=== PATIENT | female | born 1955 | race Caucasian/White ===

== ENCOUNTER 2020-01-06 22:12 | Emergency (ER) | payer OTHER ==
[2020-01-06 22:34] VITALS: TEMP 97.9; BMI 20.9
[2020-01-06 23:29] LABS: BASO % 0.7 % (0-2.0); EOS % 1.4 % (0-4.5); HEMATOCRIT 37.1 % (32.4-45.2); HEMOGLOBIN 12.3 GM/dL (10.7-15.3); LYMPH % 36.8 % (8-40); MCH 31.8 pg (25.7-33.7); MCHC 33.2 g/dl (32.0-36.0); MEAN CELL VOLUME 95.6 fl (80-96); MEAN PLT VOLUME 8.5 fl (7.5-11.1); MONO % 10.2 % (3.8-10.2); NEUT % 50.9 % (42.8-82.8); PLATELET COUNT 188 K/MM3 (134-434); RBC 3.88 M/mm3 (3.60-5.2); RDW 14.7 % (11.6-15.6); WHITE BLOOD COUNT 7.1 K/mm3 (4.0-10.0)
[2020-01-06 23:37] LABS: INR 0.95 (0.83-1.09); PROTHROMBIN TIME (PATIENT) 11.7 SEC (9.7-13.0)
[2020-01-06 23:40] LABS: ACTIVATED PTT 31.3 SECONDS (25.2-36.5)
[2020-01-07 00:40] VITALS: BP 122/72; PULSE 86
== END 2020-01-07 00:40 | disposition home or self-care (01) ==
LOC: JER 22:12
DX: R04.0 Epistaxis (principal)
CPT/HCPCS: 36415; 85025; 85610; 85730; 99284-25

== ENCOUNTER 2020-08-17 17:11 | Emergency (ER) | payer OTHER ==
[2020-08-17 17:48] VITALS: BP 108/62; PULSE 77; TEMP 99; BMI 21.9
== END 2020-08-17 19:25 | disposition home or self-care (01) ==
LOC: JER 17:11
DX: L03.313 Cellulitis of chest wall (principal)
CPT/HCPCS: 99283-25

== ENCOUNTER 2020-08-19 09:47 | Inpatient (IN) | payer OTHER ==
[2020-08-19] MEDS ORDERED: FAMOTIDINE 20 MG/50 ML IVPB 20 MG/50 ML MG IVPB ONE ×2 (10:54→11:11)
[2020-08-19] MEDS ORDERED: MAG HYDROX/AL HYDROX/SIMETH 30 ML UNIT-DOSE CUP PO ONE (10:54)
[2020-08-19] MEDS ORDERED: ACETAMINOPHEN 500 MG TABLET (FP) PO ONE (10:54)
[2020-08-19] MEDS ORDERED: ACETAMINOPHEN 325 MG TABLET (FP) ONE (11:10)
[2020-08-19] MEDS ORDERED: MAG HYDROX/AL HYDROX/SIMETH 30 ML UNIT-DOSE CUP ONE (11:11)
[2020-08-19 12:02] LABS: BASO % 0.1 % (0-2.0); EOS % 0.2 % (0-4.5); HEMATOCRIT 37.3 % (32.4-45.2); LYMPH % 17.6 % (8-40); MCH 30.5 pg (25.7-33.7); MCHC 32.1 g/dl (32.0-36.0); MEAN PLT VOLUME 9.3 fl (7.5-11.1); NEUT % 74.1 % (42.8-82.8); PLATELET COUNT 144 10^3/uL (134-434); RBC 3.93 M/mm3 (3.60-5.2); RDW 13.1 % (11.6-15.6); WHITE BLOOD COUNT 8.1 K/mm3 (4.0-10.0)
[2020-08-19 12:48] LABS: CHLORIDE 99 mmol/L (98-107); SODIUM 137 mmol/L (136-145)
[2020-08-19 12:50] LABS: ALBUMIN 3.7 g/dl (3.4-5.0); ANION GAP 6 MMOL/L (8-16); CALCIUM 8.9 mg/dL (8.5-10.1); CO2 33 mmol/L (21-32); GLUCOSE,RANDOM 168 mg/dL (74-106)
[2020-08-19 12:54] LABS: SGOT/AST 19 U/L (15-37); SGPT/ALT 24 U/L (13-61)
[2020-08-19 12:55] LABS: BILIRUBIN,TOTAL 0.3 mg/dL (0.2-1); TOT PROT 7.9 g/dl (6.4-8.2)
[2020-08-19 12:56] LABS: ALK PHOS 94 U/L (45-117)
[2020-08-19] MEDS ORDERED: traMADol HCL 50 MG TABLET PO ONE (13:26)
[2020-08-19] MEDS ORDERED: ASPIRIN 81 MG CHEWABLE TABLETS PO ONE (13:36)
[2020-08-19] MEDS ORDERED: ASPIRIN 81 MG CHEWABLE TABLETS ONE (13:41)
[2020-08-19] MEDS ORDERED: traMADol HCL 50 MG TABLET ONE (13:41)
[2020-08-19] MEDS ORDERED: LORazepam 2 MG TABLET PO ONE (14:29)
[2020-08-19] MEDS ORDERED: LORazepam 1 MG TABLET ONE (14:39)
[2020-08-19] MEDS ORDERED: ACETAMINOPHEN 1000 MG/100 ML VIAL (NON FORMULARY) IVPB PRN (14:56)
[2020-08-19] MEDS ORDERED: AMPICILLIN NA/SULBACTAM NA 1.5 GM VIAL ONE (16:32)
[2020-08-19] MEDS: AMPICILLIN NA/SULBACTAM NA 3 GM in SODIUM CHLORIDE 100 ML IVPB SCH ×2 (16:39→22:19)
[2020-08-19] MEDS: INSULIN SLIDING SCALE (NOVOLOG) 1 VIAL SQ SCH ×2 (17:46→22:23)
[2020-08-19] MEDS ORDERED: traZODone HCL 50 MG TABLET (FP) PO ONE (22:00)
[2020-08-19] MEDS: risperiDONE 1 MG TABLET PO SCH (22:16)
[2020-08-19] MEDS: MELATONIN 5 MG TABLETS PO SCH (22:17)
[2020-08-19] MEDS: ATENOLOL 50 MG TABLET (FP) PO SCH (22:17)
[2020-08-19] MEDS: ATORVASTATIN CA 20 MG TABLET (FP) PO SCH (22:17)
[2020-08-19] MEDS: traMADol HCL 50 MG TABLET PO PRN (22:26)
[2020-08-20 01:29] LABS: URINE BARBITURATES NEGATIVE (NEGATIVE); URINE BENZODIAZEPINES NEGATIVE (NEGATIVE)
[2020-08-20 01:30] LABS: COCAINE, UR NEGATIVE (NEGATIVE); OPIATES, URI NEGATIVE (NEGATIVE); PHENCYCLIDINE,URINE NEGATIVE (NEGATIVE)
[2020-08-20 01:45] LABS: METHADONE, UR POSITIVE (NEGATIVE); URINE AMPHETAMINES NEGATIVE (NEGATIVE)
[2020-08-20] MEDS: AMPICILLIN NA/SULBACTAM NA 3 GM in SODIUM CHLORIDE 100 ML IVPB SCH ×4 (04:24→21:10)
[2020-08-20] MEDS ORDERED: methaDONE HCL 10 MG TABLET ONE (05:04)
[2020-08-20] MEDS ORDERED: methaDONE HCL 40 MG DISPERSABLE TABLET ONE (05:04)
[2020-08-20] MEDS: traMADol HCL 50 MG TABLET PO PRN ×3 (05:11→21:06)
[2020-08-20] MEDS ORDERED: methaDONE HCL 10 MG TABLET (FOR DETOX USE ONLY) PO ONE (06:00)
[2020-08-20] MEDS: INSULIN SLIDING SCALE (NOVOLOG) 1 VIAL SQ SCH ×4 (06:07→21:08)
[2020-08-20 07:23] LABS: HEMATOCRIT 33.2 % (32.4-45.2); HEMOGLOBIN 10.9 GM/dL (10.7-15.3); MCHC 32.8 g/dl (32.0-36.0); MEAN CELL VOLUME 94.4 fl (80-96); MEAN PLT VOLUME 8.7 fl (7.5-11.1); PLATELET COUNT 117 10^3/uL (134-434); RBC 3.52 M/mm3 (3.60-5.2); RDW 13.3 % (11.6-15.6); WHITE BLOOD COUNT 4.1 K/mm3 (4.0-10.0)
[2020-08-20 07:46] LABS: BLOOD UREA NITROGEN 18.7 mg/dL (7-18); CALCIUM 8.5 mg/dL (8.5-10.1)
[2020-08-20 07:49] LABS: CREATININE 0.7 mg/dL (0.55-1.3)
[2020-08-20 07:50] LABS: BILIRUBIN,TOTAL 0.3 mg/dL (0.2-1)
[2020-08-20 07:51] LABS: TOT PROT 6.6 g/dl (6.4-8.2)
[2020-08-20 07:53] LABS: CHOLESTEROL 125 mg/dL (50-200)
[2020-08-20 07:54] LABS: TRIGLYCERIDES 138 mg/dL (0-150)
[2020-08-20 07:55] LABS: LDL CHOLESTEROL (ONLY SJRH) 63 mg/dL (5-100)
[2020-08-20 07:57] LABS: HDL CHOLESTEROL 32 mg/dL (40-60)
[2020-08-20] MEDS: amLODIPine BESYLATE 10 MG TABLET (FP) PO SCH (08:12)
[2020-08-20] MEDS ORDERED: LORazepam 1 MG TABLET PO ONE (08:15)
[2020-08-20] MEDS ORDERED: PT OWN MED DRAWER 7, Y5N ONE ×3 (09:49→21:01)
[2020-08-20] MEDS ORDERED: REGADENOSON 0.4 MG/5 ML PRE-FILLED SYRINGE IVPUSH ONE ×2 (10:00→10:06)
[2020-08-20] MEDS ORDERED: amLODIPine BESYLATE 10 MG TABLET (FP) PO SCH (10:00)
[2020-08-20] MEDS ORDERED: DULoxetine HCL 30 MG CAPSULE.DR PO ONE (12:53)
[2020-08-20] MEDS: ENOXAPARIN NA (PORCINE) 40 MG/0.4 ML DISP.SYRIN SQ SCH (13:06)
[2020-08-20] MEDS: ATENOLOL 50 MG TABLET (FP) PO SCH ×2 (13:06→21:07)
[2020-08-20] MEDS: LEVOTHYROXINE NA 112 MCG TABLET (FP) PO SCH (13:07)
[2020-08-20] MEDS: DULoxetine HCL 60 MG CAPSULE.DR PO SCH (13:11)
[2020-08-20] MEDS: RITONAVIR 100 MG TABLET PO SCH (14:07)
[2020-08-20] MEDS: EMTRICITABINE/TENOFOV ALAFENAM (DESCOVY) TABLET PO SCH (14:07)
[2020-08-20] MEDS: DARUNAVIR ETHANOLATE 800 MG TAB PO SCH (14:07)
[2020-08-20 14:29] VITALS: BMI 22.4
[2020-08-20] MEDS: MELATONIN 5 MG TABLETS PO SCH (21:07)
[2020-08-20] MEDS: ATORVASTATIN CA 20 MG TABLET (FP) PO SCH (21:07)
[2020-08-20] MEDS: risperiDONE 1 MG TABLET PO SCH (21:08)
[2020-08-21] MEDS ORDERED: PT OWN MED DRAWER 7, Y5N ONE ×5 (03:07→22:33)
[2020-08-21] MEDS: AMPICILLIN NA/SULBACTAM NA 3 GM in SODIUM CHLORIDE 100 ML IVPB SCH ×4 (03:08→20:38)
[2020-08-21] MEDS ORDERED: methaDONE HCL 10 MG TABLET ONE (05:03)
[2020-08-21] MEDS ORDERED: methaDONE HCL 40 MG DISPERSABLE TABLET ONE (05:03)
[2020-08-21] MEDS: traMADol HCL 50 MG TABLET PO PRN ×3 (05:09→17:27)
[2020-08-21] MEDS: INSULIN SLIDING SCALE (NOVOLOG) 1 VIAL SQ SCH ×4 (06:34→22:11)
[2020-08-21] MEDS: LORazepam 1 MG TABLET PO PRN ×2 (08:27→16:39)
[2020-08-21] MEDS ORDERED: DULoxetine HCL 30 MG CAPSULE.DR PO ONE (08:54)
[2020-08-21] MEDS: LEVOTHYROXINE NA 112 MCG TABLET (FP) PO SCH (09:13)
[2020-08-21] MEDS: ATENOLOL 50 MG TABLET (FP) PO SCH ×2 (09:13→22:10)
[2020-08-21] MEDS: DULoxetine HCL 60 MG CAPSULE.DR PO SCH (09:14)
[2020-08-21] MEDS: ENOXAPARIN NA (PORCINE) 40 MG/0.4 ML DISP.SYRIN SQ SCH (09:14)
[2020-08-21] MEDS: amLODIPine BESYLATE 10 MG TABLET (FP) PO SCH (09:14)
[2020-08-21] MEDS: EMTRICITABINE/TENOFOV ALAFENAM (DESCOVY) TABLET PO SCH (09:15)
[2020-08-21] MEDS: DARUNAVIR ETHANOLATE 800 MG TAB PO SCH (09:16)
[2020-08-21] MEDS: RITONAVIR 100 MG TABLET PO SCH (10:22)
[2020-08-21 12:14] LABS: BASO % 0.4 % (0-2.0); EOS % 3.5 % (0-4.5); HEMOGLOBIN 12.1 GM/dL (10.7-15.3); LYMPH % 26.6 % (8-40); MCH 30.5 pg (25.7-33.7); MCHC 31.9 g/dl (32.0-36.0); MEAN CELL VOLUME 95.5 fl (80-96); MONO % 8.4 % (3.8-10.2); NEUT % 61.1 % (42.8-82.8); PLATELET COUNT 148 10^3/uL (134-434); RBC 3.98 M/mm3 (3.60-5.2); RDW 12.9 % (11.6-15.6); WHITE BLOOD COUNT 3.9 K/mm3 (4.0-10.0)
[2020-08-21 12:45] LABS: ALBUMIN 3.2 g/dl (3.4-5.0); BLOOD UREA NITROGEN 16.1 mg/dL (7-18); CALCIUM 8.9 mg/dL (8.5-10.1); MAGNESIUM 2.2 mg/dL (1.8-2.4)
[2020-08-21 12:49] LABS: CREATININE 0.8 mg/dL (0.55-1.3)
[2020-08-21 12:50] LABS: BILIRUBIN,TOTAL 0.3 mg/dL (0.2-1); TOT PROT 7.1 g/dl (6.4-8.2)
[2020-08-21] MEDS ORDERED: SODIUM CHLORIDE NASAL SPRAY 44 ML BOTTLE NS PRN (15:17)
[2020-08-21] MEDS ORDERED: ACETAMINOPHEN 500 MG TABLET (FP) PO PRN (16:46)
[2020-08-21] MEDS: LYTES/YERBA SANTA 240 ML BOTTLE MM SCH (17:25)
[2020-08-21] MEDS: MELATONIN 5 MG TABLETS PO SCH (22:10)
[2020-08-21] MEDS: risperiDONE 1 MG TABLET PO SCH (22:11)
[2020-08-21] MEDS: ATORVASTATIN CA 20 MG TABLET (FP) PO SCH (22:11)
[2020-08-22] MEDS: traMADol HCL 50 MG TABLET PO PRN (01:27)
[2020-08-22] MEDS ORDERED: PT OWN MED DRAWER 7, Y5N ONE ×3 (02:39→14:14)
[2020-08-22] MEDS: AMPICILLIN NA/SULBACTAM NA 3 GM in SODIUM CHLORIDE 100 ML IVPB SCH ×3 (02:45→14:17)
[2020-08-22] MEDS ORDERED: methaDONE HCL 40 MG DISPERSABLE TABLET ONE (05:39)
[2020-08-22] MEDS ORDERED: methaDONE HCL 10 MG TABLET ONE (05:39)
[2020-08-22] MEDS: LORazepam 1 MG TABLET PO PRN ×2 (06:03→14:18)
[2020-08-22] MEDS: INSULIN SLIDING SCALE (NOVOLOG) 1 VIAL SQ SCH ×2 (06:34→11:29)
[2020-08-22] MEDS ORDERED: LEVOTHYROXINE NA 112 MCG TABLET (FP) PO SCH (07:00)
[2020-08-22 07:02] LABS: BASO % 0.4 % (0-2.0); EOS % 3.8 % (0-4.5); HEMATOCRIT 36.3 % (32.4-45.2); HEMOGLOBIN 11.7 GM/dL (10.7-15.3); MCH 30.5 pg (25.7-33.7); MCHC 32.3 g/dl (32.0-36.0); MEAN CELL VOLUME 94.6 fl (80-96); MEAN PLT VOLUME 9.2 fl (7.5-11.1); NEUT % 50.8 % (42.8-82.8); PLATELET COUNT 165 10^3/uL (134-434); RBC 3.84 M/mm3 (3.60-5.2); RDW 13.3 % (11.6-15.6); WHITE BLOOD COUNT 4.3 K/mm3 (4.0-10.0)
[2020-08-22 07:43] LABS: CALCIUM 8.9 mg/dL (8.5-10.1)
[2020-08-22 07:44] LABS: ALBUMIN 3.2 g/dl (3.4-5.0); BLOOD UREA NITROGEN 18.1 mg/dL (7-18); MAGNESIUM 2.3 mg/dL (1.8-2.4)
[2020-08-22 07:47] LABS: CREATININE 0.9 mg/dL (0.55-1.3)
[2020-08-22 07:48] LABS: BILIRUBIN,TOTAL 0.3 mg/dL (0.2-1); TOT PROT 6.9 g/dl (6.4-8.2)
[2020-08-22] MEDS ORDERED: traMADol HCL 50 MG TABLET PO ONE (08:00)
[2020-08-22] MEDS ORDERED: DULoxetine HCL 30 MG CAPSULE.DR PO ONE (09:55)
[2020-08-22] MEDS: amLODIPine BESYLATE 10 MG TABLET (FP) PO SCH (09:58)
[2020-08-22] MEDS: ATENOLOL 50 MG TABLET (FP) PO SCH (09:58)
[2020-08-22] MEDS: DULoxetine HCL 60 MG CAPSULE.DR PO SCH (09:59)
[2020-08-22] MEDS: ENOXAPARIN NA (PORCINE) 40 MG/0.4 ML DISP.SYRIN SQ SCH (09:59)
[2020-08-22] MEDS: RITONAVIR 100 MG TABLET PO SCH (10:00)
[2020-08-22] MEDS: LYTES/YERBA SANTA 240 ML BOTTLE MM SCH (10:00)
[2020-08-22] MEDS: EMTRICITABINE/TENOFOV ALAFENAM (DESCOVY) TABLET PO SCH (10:00)
[2020-08-22] MEDS: DARUNAVIR ETHANOLATE 800 MG TAB PO SCH (10:01)
[2020-08-22] MEDS ORDERED: SODIUM CHLORIDE FOR INHALATION 3 ML VIAL.NEB IH PRN (11:36)
[2020-08-22 15:01] VITALS: BP 120/79; PULSE 65; TEMP 97.9
[2020-08-22] MEDS ORDERED: traZODone HCL 100 MG TABLET (FP) PO SCH (22:00)
== END 2020-08-22 16:08 | disposition short-term general hospital (02) | DRG 603 ==
LOC: JER 09:47 → INTOOBSV 13:39 → JERBED 13:39 → OBSVTOIN 14:49 → J4S 20:48
PROVIDERS: ATTEND Nurse Practitioner Acute Care
DX: L03.313 Cellulitis of chest wall (principal); I24.9 Acute ischemic heart disease, unspecified; F11.20 Opioid dependence, uncomplicated; J96.12 Chronic respiratory failure with hypercapnia; I11.9 Hypertensive heart disease without heart failure; R07.89 Other chest pain; Z21 Asymptomatic human immunodeficiency virus [HIV] infection status; C14.0 Malignant neoplasm of pharynx, unspecified; E03.9 Hypothyroidism, unspecified; E78.5 Hyperlipidemia, unspecified
CPT/HCPCS: 36415; 71046-TC-FY; 78452-TC; 80053; 80061; 80307; 82550; 82962; 83036; 83615; 83721; 83735; 84484; 85025; 85027; 86359; 86360; 93005; 93010; 93017; 93306-TC; 99285-25; A9502; C9803; G0378; J2785; J2794; U0003; U0005

== ENCOUNTER 2020-11-06 12:00 | Emergency (ER) | payer OTHER ==
[2020-11-06 12:30] VITALS: BP 113/66; PULSE 67; TEMP 97.9; BMI 21.9
[2020-11-06] MEDS ORDERED: ALPRAZolam 0.25 MG TABLET PO ONE (14:26)
[2020-11-06] MEDS ORDERED: ACETAMINOPHEN 1000 MG/100 ML VIAL (NON FORMULARY) IVPB ONE (14:26)
[2020-11-06] MEDS ORDERED: ACETAMINOPHEN INJECTION 100 ML IVPB ONE (14:51)
[2020-11-06] MEDS ORDERED: ALPRAZolam 0.25 MG TABLET ONE (15:28)
[2020-11-06 16:19] LABS: BASO % 0.5 % (0-2.0); EOS % 1.5 % (0-4.5); HEMATOCRIT 35.3 % (32.4-45.2); HEMOGLOBIN 11.7 GM/dL (10.7-15.3); LYMPH % 43.2 % (8-40); MCH 30.9 pg (25.7-33.7); MCHC 33.2 g/dl (32.0-36.0); MEAN CELL VOLUME 92.8 fl (80-96); MEAN PLT VOLUME 8.4 fl (7.5-11.1); MONO % 11.6 % (3.8-10.2); NEUT % 43.2 % (42.8-82.8); PLATELET COUNT 166 10^3/uL (134-434); RDW 15.3 % (11.6-15.6); WHITE BLOOD COUNT 5.8 K/mm3 (4.0-10.0)
[2020-11-06 16:27] LABS: VENOUS BASE EXCESS 4.5 mmol/L (-2-2); VENOUS O2 SATURATION 84.1 % (70-80); VENOUS PCO2 58.6 mmHg (38-52); VENOUS PH 7.349 (7.310-7.410)
[2020-11-06 18:03] LABS: ALBUMIN 3.7 g/dl (3.4-5.0); BILIRUBIN,TOTAL 0.4 mg/dL (0.2-1); CHLORIDE 101 mmol/L (98-107); CO2 34 mmol/L (21-32); CREATININE 1.1 mg/dL (0.55-1.3); GLUCOSE,RANDOM 115 mg/dL (74-106); SGOT/AST 23 U/L (15-37); SODIUM 139 mmol/L (136-145)
[2020-11-06 18:04] LABS: ALK PHOS 117 U/L (45-117); SGPT/ALT 19 U/L (13-61)
[2020-11-06 18:05] LABS: ANION GAP 4 MMOL/L (8-16); N-TERMINAL BNP 714.09 pg/ml (5-125)
== END 2020-11-06 19:30 | disposition home or self-care (01) ==
LOC: JER 12:00
PROC: 3E0333Z Introduction of Anti-inflammatory into Peripheral Vein, Percutaneous Approach (ICD-10-PCS; principal; 2020-11-06)
DX: R06.02 Shortness of breath (principal)
CPT/HCPCS: 36415; 71046-TC-FY; 80053; 82550; 82803; 83880; 84484; 85025; 93005; 93010; 93971-TC; 96374; 99285-25; J0131

== ENCOUNTER 2020-11-15 11:03 | Observation (INO) | payer OTHER ==
[2020-11-15] MEDS ORDERED: ACETAMINOPHEN 1000 MG/100 ML VIAL (NON FORMULARY) IVPB ONE (11:24)
[2020-11-15] MEDS ORDERED: ACETAMINOPHEN INJECTION 100 ML IVPB ONE (11:41)
[2020-11-15 12:15] LABS: BASO % 0.5 % (0-2.0); EOS % 0.8 % (0-4.5); HEMATOCRIT 36.6 % (32.4-45.2); HEMOGLOBIN 12.2 GM/dL (10.7-15.3); LYMPH % 27.9 % (8-40); MCH 31.3 pg (25.7-33.7); MCHC 33.2 g/dl (32.0-36.0); MEAN CELL VOLUME 94.1 fl (80-96); MEAN PLT VOLUME 8.9 fl (7.5-11.1); MONO % 7.6 % (3.8-10.2); NEUT % 63.2 % (42.8-82.8); PLATELET COUNT 164 10^3/uL (134-434); RBC 3.89 M/mm3 (3.60-5.2); RDW 15.4 % (11.6-15.6); WHITE BLOOD COUNT 5.6 K/mm3 (4.0-10.0)
[2020-11-15] MEDS ORDERED: LORazepam 1 MG TABLET PO ONE (12:16)
[2020-11-15] MEDS ORDERED: LORazepam 1 MG TABLET ONE (12:18)
[2020-11-15 12:23] LABS: INR 0.95 (0.83-1.09); PROTHROMBIN TIME (PATIENT) 11.7 SEC (9.7-13.0)
[2020-11-15 12:25] LABS: ACTIVATED PTT 28.7 SECONDS (25.2-36.5)
[2020-11-15 12:37] LABS: CHLORIDE 101 mmol/L (98-107); SODIUM 139 mmol/L (136-145)
[2020-11-15 12:39] LABS: ANION GAP 6 MMOL/L (8-16); CALCIUM 9.2 mg/dL (8.5-10.1); CO2 32 mmol/L (21-32)
[2020-11-15 12:40] LABS: ALBUMIN 3.7 g/dl (3.4-5.0); BLOOD UREA NITROGEN 19.6 mg/dL (7-18); MAGNESIUM 1.9 mg/dL (1.8-2.4)
[2020-11-15 12:41] LABS: GLUCOSE,RANDOM 102 mg/dL (74-106)
[2020-11-15 12:42] LABS: SGPT/ALT 20 U/L (13-61)
[2020-11-15 12:43] LABS: CREATININE 0.9 mg/dL (0.55-1.3); SGOT/AST 25 U/L (15-37)
[2020-11-15 12:44] LABS: BILIRUBIN,TOTAL 0.4 mg/dL (0.2-1); TOT PROT 8.5 g/dl (6.4-8.2)
[2020-11-15 12:45] LABS: ALK PHOS 126 U/L (45-117)
[2020-11-15] MEDS ORDERED: traZODone HCL 150 MG TABLET PO ONE (20:20)
[2020-11-15] MEDS ORDERED: traZODone HCL 50 MG TABLET (FP) PO ONE (20:45)
[2020-11-15] MEDS: risperiDONE 1 MG TABLET PO SCH (21:20)
[2020-11-15] MEDS: ATENOLOL 50 MG TABLET (FP) PO SCH (21:21)
[2020-11-15] MEDS: ATORVASTATIN CA 20 MG TABLET (FP) PO SCH (21:21)
[2020-11-15] MEDS: INSULIN (LEVEMIR) 100 UNITS/ML UNITS SQ SCH (21:21)
[2020-11-15] MEDS: traMADol HCL 50 MG TABLET PO PRN (21:22)
[2020-11-16 00:31] VITALS: BMI 22.2
[2020-11-16] MEDS ORDERED: ACETAMINOPHEN 1000 MG/100 ML VIAL (NON FORMULARY) IVPB ONE (02:25)
[2020-11-16] MEDS ORDERED: methaDONE HCL 40 MG DISPERSABLE TABLET PO ONE (05:00)
[2020-11-16] MEDS: traMADol HCL 50 MG TABLET PO PRN (05:26)
[2020-11-16] MEDS: ACETAMINOPHEN 325 MG TABLET (FP) PO PRN ×3 (05:28→21:05)
[2020-11-16] MEDS: LEVOTHYROXINE NA 112 MCG TABLET (FP) PO SCH (06:59)
[2020-11-16] MEDS: DULoxetine HCL 30 MG CAPSULE.DR PO SCH (09:59)
[2020-11-16] MEDS: amLODIPine BESYLATE 5 MG TABLET (FP) PO SCH (09:59)
[2020-11-16] MEDS: ATENOLOL 50 MG TABLET (FP) PO SCH ×2 (09:59→21:02)
[2020-11-16] MEDS ORDERED: RITONAVIR 100 MG TABLET PO SCH (10:00)
[2020-11-16] MEDS ORDERED: DARUNAVIR ETHANOLATE 800 MG TAB PO SCH (10:00)
[2020-11-16] MEDS ORDERED: traZODone HCL 150 MG TABLET PO SCH (10:00)
[2020-11-16] MEDS: ENOXAPARIN NA (PORCINE) 40 MG/0.4 ML DISP.SYRIN SQ SCH (10:04)
[2020-11-16] MEDS: DARUNAVIR/COB/EMTRI/TENOF (SYMTUZA) TABLET (NF) PO SCH ×2 (12:34→14:07)
[2020-11-16 12:50] LABS: BASO % 0.6 % (0-2.0); EOS % 2.1 % (0-4.5); HEMATOCRIT 36.9 % (32.4-45.2); HEMOGLOBIN 12.1 GM/dL (10.7-15.3); LYMPH % 30.9 % (8-40); MCH 31.2 pg (25.7-33.7); MCHC 32.7 g/dl (32.0-36.0); MEAN CELL VOLUME 95.3 fl (80-96); MEAN PLT VOLUME 9.5 fl (7.5-11.1); MONO % 8.1 % (3.8-10.2); NEUT % 58.3 % (42.8-82.8); PLATELET COUNT 156 10^3/uL (134-434); RBC 3.87 M/mm3 (3.60-5.2); RDW 15.5 % (11.6-15.6); WHITE BLOOD COUNT 5.2 K/mm3 (4.0-10.0)
[2020-11-16 13:20] LABS: ALBUMIN 3.6 g/dl (3.4-5.0); BILIRUBIN,TOTAL 0.4 mg/dL (0.2-1); BLOOD UREA NITROGEN 13.6 mg/dL (7-18); CALCIUM 9.3 mg/dL (8.5-10.1); CREATININE 0.8 mg/dL (0.55-1.3); MAGNESIUM 1.9 mg/dL (1.8-2.4); PHOSPHOROUS 3.7 mg/dL (2.5-4.9); TOT PROT 8.4 g/dl (6.4-8.2)
[2020-11-16] MEDS ORDERED: ACETAMINOPHEN 500 MG TABLET (FP) PO PRN (13:39)
[2020-11-16] MEDS: oxyCODONE HCL 5 MG TABLET PO PRN ×2 (13:54→21:03)
[2020-11-16] MEDS ORDERED: PT OWN MED DRAWER 7, Y5N ONE (20:56)
[2020-11-16] MEDS: ATORVASTATIN CA 20 MG TABLET (FP) PO SCH (21:02)
[2020-11-16] MEDS: risperiDONE 1 MG TABLET PO SCH (21:03)
[2020-11-16] MEDS: INSULIN (LEVEMIR) 100 UNITS/ML UNITS SQ SCH (21:12)
[2020-11-17 05:21] VITALS: BP 124/79; PULSE 72; TEMP 98.4
[2020-11-17] MEDS: ACETAMINOPHEN 325 MG TABLET (FP) PO PRN ×2 (05:51→10:48)
[2020-11-17] MEDS: oxyCODONE HCL 5 MG TABLET PO PRN (05:51)
[2020-11-17] MEDS ORDERED: methaDONE HCL 40 MG DISPERSABLE TABLET PO SCH (06:00)
[2020-11-17] MEDS: LEVOTHYROXINE NA 112 MCG TABLET (FP) PO SCH (06:01)
[2020-11-17 08:59] LABS: HEMATOCRIT 36.1 % (32.4-45.2); HEMOGLOBIN 11.9 GM/dL (10.7-15.3); PLATELET COUNT 152 10^3/uL (134-434); RBC 3.83 M/mm3 (3.60-5.2); RDW 15.8 % (11.6-15.6)
[2020-11-17 09:30] LABS: BLOOD UREA NITROGEN 19.2 mg/dL (7-18); MAGNESIUM 2.1 mg/dL (1.8-2.4)
[2020-11-17 09:33] LABS: CREATININE 0.8 mg/dL (0.55-1.3)
[2020-11-17] MEDS ORDERED: POLYETHYLENE GLYCOL (HEALTHYLAX) 3350 17 GM PACKET PO SCH (10:00)
[2020-11-17] MEDS: DULoxetine HCL 30 MG CAPSULE.DR PO SCH (10:47)
[2020-11-17] MEDS: ENOXAPARIN NA (PORCINE) 40 MG/0.4 ML DISP.SYRIN SQ SCH (10:47)
[2020-11-17] MEDS: ATENOLOL 50 MG TABLET (FP) PO SCH (10:47)
[2020-11-17] MEDS: amLODIPine BESYLATE 5 MG TABLET (FP) PO SCH (10:48)
== END 2020-11-17 16:17 | disposition home or self-care (01) ==
LOC: JER 11:03 → INTOOBSV 14:19 → JERBED 14:19 → J7W 19:06
PROC: 3E033NZ Introduction of Analgesics, Hypnotics, Sedatives into Peripheral Vein, Percutaneous Approach (ICD-10-PCS; principal; 2020-11-15)
PROC: 3E023GC Introduction of Other Therapeutic Substance into Muscle, Percutaneous Approach (ICD-10-PCS; 2020-11-15)
DX: I27.20 Pulmonary hypertension, unspecified (principal); I25.10 Atherosclerotic heart disease of native coronary artery without angina pectoris; I11.9 Hypertensive heart disease without heart failure; R07.89 Other chest pain; Z85.3 Personal history of malignant neoplasm of breast; Z85.22 Personal history of malignant neoplasm of nasal cavities, middle ear, and accessory sinuses; E11.9 Type 2 diabetes mellitus without complications; B20 Human immunodeficiency virus [HIV] disease; E03.9 Hypothyroidism, unspecified; E78.00 Pure hypercholesterolemia, unspecified; Z79.891 Long term (current) use of opiate analgesic; Z90.10 Acquired absence of unspecified breast and nipple; R06.89 Other abnormalities of breathing; J98.11 Atelectasis; Z29.9 Encounter for prophylactic measures, unspecified
CPT/HCPCS: 36415; 71045-TC-FY; 71275-TC; 80048; 80053; 82550; 82962; 83735; 83880; 84100; 84443; 84484; 85025; 85027; 85379; 85610; 85730; 93005; 93010; 93306-TC; 93970-TC; 96372; 96374; 96376; 99285-25; C9803; G0378; J0131; J2794; Q9967; U0003; U0005

== ENCOUNTER 2021-04-13 10:59 | Inpatient (IN) | payer OTHER ==
[2021-04-13 11:12] VITALS: BMI 23.2
[2021-04-13] MEDS ORDERED: LORazepam 2 MG/ML SDV VIAL IVPUSH STA (13:52)
[2021-04-13] MEDS ORDERED: ACETAMINOPHEN 1000 MG/100 ML BAG IVPB ONE (13:52)
[2021-04-13] MEDS ORDERED: ACETAMINOPHEN INJECTION 100 ML IVPB ONE (14:14)
[2021-04-13 14:52] LABS: BASO % 0.4 % (0-2.0); EOS % 0.6 % (0-4.5); HEMATOCRIT 36.5 % (32.4-45.2); HEMOGLOBIN 12.1 GM/dL (10.7-15.3); MCH 32.2 pg (25.7-33.7); MCHC 33.2 g/dl (32.0-36.0); MEAN CELL VOLUME 97.1 fl (80-96); MEAN PLT VOLUME 8.5 fl (7.5-11.1); MONO % 10.7 % (3.8-10.2); NEUT % 57.3 % (42.8-82.8); PLATELET COUNT 293 10^3/uL (134-434); RBC 3.76 M/mm3 (3.60-5.2); RDW 13.7 % (11.6-15.6); WHITE BLOOD COUNT 5.2 K/mm3 (4.0-10.0)
[2021-04-13 14:53] LABS: VENOUS BASE EXCESS 2.7 mmol/L (-2-2); VENOUS O2 SATURATION 52.4 % (70-80); VENOUS PCO2 69.9 mmHg (38-52); VENOUS PH 7.273 (7.310-7.410)
[2021-04-13 15:14] LABS: CALCIUM 9.4 mg/dL (8.5-10.1)
[2021-04-13 15:15] LABS: ALBUMIN 3.8 g/dl (3.4-5.0); BLOOD UREA NITROGEN 24.2 mg/dL (7-18)
[2021-04-13 15:18] LABS: CREATININE 1.3 mg/dL (0.55-1.3)
[2021-04-13 15:19] LABS: BILIRUBIN,TOTAL 0.4 mg/dL (0.2-1)
[2021-04-13 15:20] LABS: TOT PROT 8.2 g/dl (6.4-8.2)
[2021-04-13 15:22] LABS: N-TERMINAL BNP 1464.1 pg/ml (5-125)
[2021-04-13] MEDS ORDERED: FUROSEMIDE 40 MG/4 ML INJECTABLE VIAL IVPB ONE (15:41)
[2021-04-13] MEDS ORDERED: FUROSEMIDE 40 MG/4 ML INJECTABLE VIAL ONE (16:20)
[2021-04-13 17:45] LABS: BLOOD UREA NITROGEN 26.1 mg/dL (7-18)
[2021-04-13 17:48] LABS: CREATININE 1.2 mg/dL (0.55-1.3)
[2021-04-13 19:55] LABS: PH,URINE 5.5 (5.0-8.0); URINE APPEARANCE CLEAR; URINE BILIRUBIN NEGATIVE (NEGATIVE); URINE COLOR YELLOW; URINE GLUCOSE (UA) NEGATIVE (NEGATIVE); URINE KETONE NEGATIVE (NEGATIVE); URINE LEUK ESTERASE NEGATIVE (NEGATIVE); URINE NITRITE NEGATIVE (NEGATIVE); URINE PROTEIN NEGATIVE (NEGATIVE); URINE UROBILINOGEN 0.2 mg/dL (0.2-1.0)
[2021-04-13 20:14] LABS: OPIATES, URI NEGATIVE (NEGATIVE); PHENCYCLIDINE,URINE NEGATIVE (NEGATIVE); URINE AMPHETAMINES NEGATIVE (NEGATIVE); URINE BARBITURATES NEGATIVE (NEGATIVE); URINE BENZODIAZEPINES NEGATIVE (NEGATIVE)
[2021-04-13 20:22] LABS: COCAINE, UR NEGATIVE (NEGATIVE); METHADONE, UR POSITIVE (NEGATIVE)
[2021-04-13] MEDS ORDERED: PIPERACILLIN/TAZOBACTAM 3.375 GM VIAL IVPB ONE (22:11)
[2021-04-13] MEDS ORDERED: DEXTROSE 5%-WATER - 50 ML IVPB ONE (22:11)
[2021-04-13] MEDS: PIPERACILLIN/TAZOB 3.375 GM 3.375 GM in DEXTROSE 5%-WATER - 50 ML IVPB SCH (22:22)
[2021-04-13] MEDS: ATORVASTATIN CA 20 MG TABLET (FP) PO SCH (22:46)
[2021-04-13] MEDS: ATENOLOL 50 MG TABLET (FP) PO SCH (22:47)
[2021-04-14] MEDS ORDERED: PIPERACILLIN/TAZOBACTAM 3.375 GM VIAL IVPB ONE ×2 (00:54→09:13)
[2021-04-14] MEDS ORDERED: DEXTROSE 5%-WATER - 50 ML IVPB ONE ×2 (00:54→09:13)
[2021-04-14] MEDS: PIPERACILLIN/TAZOB 3.375 GM 3.375 GM in DEXTROSE 5%-WATER - 50 ML IVPB SCH ×2 (02:00→10:32)
[2021-04-14] MEDS ORDERED: methaDONE HCL 10 MG TABLET (FOR DETOX USE ONLY) PO SCH ×2 (05:00)
[2021-04-14] MEDS ORDERED: methaDONE HCL 10 MG TABLET ONE (05:33)
[2021-04-14] MEDS ORDERED: methaDONE HCL 40 MG DISPERSABLE TABLET ONE (05:33)
[2021-04-14] MEDS: methaDONE 80 MG, methaDONE 10 MG PO SCH (05:43)
[2021-04-14] MEDS ORDERED: ACETAMINOPHEN 325 MG TABLET (FP) PO PRN (06:01)
[2021-04-14] MEDS: ACETAMINOPHEN 325 MG TABLET (FP) PO PRN (06:27)
[2021-04-14 07:26] LABS: BLOOD UREA NITROGEN 22.4 mg/dL (7-18); CALCIUM 8.9 mg/dL (8.5-10.1); MAGNESIUM 2.1 mg/dL (1.8-2.4)
[2021-04-14 07:30] LABS: CREATININE 1.1 mg/dL (0.55-1.3)
[2021-04-14] MEDS ORDERED: FUROSEMIDE 40 MG TABLET (FP) PO SCH ×2 (10:00)
[2021-04-14] MEDS: DULoxetine HCL 30 MG CAPSULE.DR PO SCH (10:32)
[2021-04-14] MEDS: ATENOLOL 50 MG TABLET (FP) PO SCH ×2 (10:32→21:32)
[2021-04-14] MEDS: amLODIPine BESYLATE 5 MG TABLET (FP) PO SCH (10:32)
[2021-04-14] MEDS: LEVOTHYROXINE NA 112 MCG TABLET (FP) PO SCH (10:32)
[2021-04-14] MEDS ORDERED: ALPRAZolam 0.25 MG TABLET PO ONE (12:25)
[2021-04-14] MEDS ORDERED: ACETAMINOPHEN 325 MG TABLET (FP) PO ONE (12:30)
[2021-04-14] MEDS ORDERED: oxyCODONE HCL 5 MG TABLET PO ONE ×2 (12:30)
[2021-04-14] MEDS: LIDOCAINE 5% TOPICAL PATCH TP SCH (12:39)
[2021-04-14] MEDS ORDERED: ALPRAZolam 0.25 MG TABLET PO PRN ×2 (13:52→18:39)
[2021-04-14] MEDS: GABAPENTIN 300 MG CAPSULE PO SCH ×2 (14:32→21:29)
[2021-04-14] MEDS: FUROSEMIDE 40 MG/4 ML INJECTABLE VIAL IVPUSH SCH (16:53)
[2021-04-14] MEDS ORDERED: PIPERACILLIN/TAZOB 3.375 GM 3.375 GM in DEXTROSE 5%-WATER - 50 ML IVPB SCH (18:00)
[2021-04-14] MEDS: HEPARIN NA (PORCINE) 5,000 UNITS/ML 1ML VIAL SQ SCH (21:29)
[2021-04-14] MEDS: ATORVASTATIN CA 20 MG TABLET (FP) PO SCH (21:32)
[2021-04-14] MEDS ORDERED: MELATONIN 5 MG TABLETS PO SCH (22:00)
[2021-04-14] MEDS ORDERED: risperiDONE 1 MG TABLET PO SCH (22:00)
[2021-04-14] MEDS ORDERED: LIDOCAINE PATCH REMOVAL MC SCH (22:00)
[2021-04-15] MEDS ORDERED: methaDONE HCL 10 MG TABLET ONE (05:05)
[2021-04-15] MEDS ORDERED: methaDONE HCL 40 MG DISPERSABLE TABLET ONE (05:05)
[2021-04-15] MEDS: ACETAMINOPHEN 325 MG TABLET (FP) PO PRN (05:43)
[2021-04-15] MEDS: HEPARIN NA (PORCINE) 5,000 UNITS/ML 1ML VIAL SQ SCH ×2 (05:44→13:41)
[2021-04-15] MEDS: GABAPENTIN 300 MG CAPSULE PO SCH ×2 (05:44→13:41)
[2021-04-15] MEDS: methaDONE 80 MG, methaDONE 10 MG PO SCH (05:45)
[2021-04-15] MEDS: LEVOTHYROXINE NA 112 MCG TABLET (FP) PO SCH (06:00)
[2021-04-15 07:27] LABS: HEMATOCRIT 33.9 % (32.4-45.2); HEMOGLOBIN 11.4 GM/dL (10.7-15.3); MCH 32.5 pg (25.7-33.7); MCHC 33.6 g/dl (32.0-36.0); MEAN CELL VOLUME 96.7 fl (80-96); MEAN PLT VOLUME 7.7 fl (7.5-11.1); PLATELET COUNT 232 10^3/uL (134-434); RDW 13.2 % (11.6-15.6); WHITE BLOOD COUNT 3.9 K/mm3 (4.0-10.0)
[2021-04-15 07:47] LABS: ALBUMIN 3.5 g/dl (3.4-5.0); BLOOD UREA NITROGEN 28.8 mg/dL (7-18); MAGNESIUM 2.3 mg/dL (1.8-2.4)
[2021-04-15 07:50] LABS: CREATININE 1.1 mg/dL (0.55-1.3); PHOSPHOROUS 4.3 mg/dL (2.5-4.9)
[2021-04-15 07:52] LABS: BILIRUBIN,TOTAL 0.7 mg/dL (0.2-1); TOT PROT 7.5 g/dl (6.4-8.2)
[2021-04-15] MEDS: DULoxetine HCL 30 MG CAPSULE.DR PO SCH (09:27)
[2021-04-15] MEDS: FUROSEMIDE 40 MG/4 ML INJECTABLE VIAL IVPUSH SCH (09:27)
[2021-04-15] MEDS: LIDOCAINE 5% TOPICAL PATCH TP SCH (09:27)
[2021-04-15] MEDS: amLODIPine BESYLATE 5 MG TABLET (FP) PO SCH (09:27)
[2021-04-15] MEDS: ATENOLOL 50 MG TABLET (FP) PO SCH (09:29)
[2021-04-15] MEDS ORDERED: EMTRICITABINE/TENOFOV ALAFENAM (DESCOVY) TABLET PO SCH (10:00)
[2021-04-15] MEDS ORDERED: DARUNAVIR ETHANOLATE 800 MG TAB PO SCH (10:00)
[2021-04-15] MEDS ORDERED: ASPIRIN 81 MG CHEWABLE TABLETS PO SCH (10:00)
[2021-04-15] MEDS ORDERED: RITONAVIR 100 MG TABLET PO SCH (10:00)
[2021-04-15 12:08] VITALS: TEMP 98.3
[2021-04-15 13:49] VITALS: BP 105/59; PULSE 68
== END 2021-04-15 17:01 | disposition home or self-care (01) | DRG 291 ==
LOC: JER 10:59 → JERBED 19:06 → J5S 21:58 → J4S 04-14 03:02
PROVIDERS: ADMIT Internal Medicine; ATTEND Internal Medicine
DX: I11.0 Hypertensive heart disease with heart failure (principal); I50.33 Acute on chronic diastolic (congestive) heart failure; J96.11 Chronic respiratory failure with hypoxia; F11.20 Opioid dependence, uncomplicated; E87.70 Fluid overload, unspecified; Z21 Asymptomatic human immunodeficiency virus [HIV] infection status; E78.5 Hyperlipidemia, unspecified; I35.0 Nonrheumatic aortic (valve) stenosis; I27.20 Pulmonary hypertension, unspecified; E11.9 Type 2 diabetes mellitus without complications; Z85.850 Personal history of malignant neoplasm of thyroid; Z85.3 Personal history of malignant neoplasm of breast
CPT/HCPCS: 36415; 71045-TC-FY; 71250-TC; 74230-TC-FY; 80048; 80053; 80307; 81003; 82803; 82962; 83735; 83880; 84100; 84484; 85025; 85027; 92611-GN; 93005; 93010; 93306-TC; 99285-25; C9803; J1644; J2794; U0003; U0005

== ENCOUNTER 2021-07-23 18:06 | Inpatient (IN) | payer OTHER ==
[2021-07-23] MEDS ORDERED: ACETAMINOPHEN 1000 MG/100 ML BAG IVPB ONE (19:17)
[2021-07-23] MEDS ORDERED: LORazepam 2 MG/ML SDV VIAL IVPUSH ONE (19:18)
[2021-07-23] MEDS ORDERED: SULFAMETHOXAZOLE 80 MG/TRIMETHOPRIM 16 MG/ML VIAL IVPB ONE (19:19)
[2021-07-23] MEDS ORDERED: ACETAMINOPHEN INJECTION 100 ML IVPB ONE (19:21)
[2021-07-23 21:35] LABS: CALCIUM 9.5 mg/dL (8.5-10.1)
[2021-07-23 21:36] LABS: BLOOD UREA NITROGEN 21.7 mg/dL (7-18)
[2021-07-23 21:40] LABS: TOT PROT 8.5 g/dl (6.4-8.2)
[2021-07-23 21:41] LABS: BILIRUBIN,TOTAL 0.5 mg/dL (0.2-1)
[2021-07-23] MEDS ORDERED: HYDROmorphone HCL CARPU-JECT 2 MG/1 ML DISP.SYRIN IVPUSH ONE (22:06)
[2021-07-23] MEDS ORDERED: GABAPENTIN 300 MG CAPSULE PO ONE (22:07)
[2021-07-23] MEDS ORDERED: GABAPENTIN 300 MG CAPSULE ONE (22:52)
[2021-07-23] MEDS ORDERED: HYDROmorphone HCl 2 MG/ML VIAL ONE (22:52)
[2021-07-23 22:59] LABS: BASO % 0.3 % (0-2.0); EOS % 0.3 % (0-4.5); HEMATOCRIT 32.8 % (32.4-45.2); LYMPH % 23.5 % (8-40); MCH 31.3 pg (25.7-33.7); MCHC 33.5 g/dl (32.0-36.0); MEAN CELL VOLUME 93.5 fl (80-96); MEAN PLT VOLUME 8.2 fl (7.5-11.1); MONO % 12.1 % (3.8-10.2); NEUT % 63.8 % (42.8-82.8); PLATELET COUNT 168 10^3/uL (134-434); RBC 3.51 M/mm3 (3.60-5.2); RDW 15.3 % (11.6-15.6); WHITE BLOOD COUNT 7.2 K/mm3 (4.0-10.0)
[2021-07-23] MEDS ORDERED: traZODone HCL 50 MG TABLET (FP) PO ONE (23:06)
[2021-07-23] MEDS ORDERED: traMADol HCL 50 MG TABLET PO ONE (23:06)
[2021-07-23] MEDS ORDERED: traMADol HCL 50 MG TABLET ONE (23:10)
[2021-07-24] MEDS ORDERED: ALBUTEROL SO4 HFA INHALER IH PRN (01:18)
[2021-07-24] MEDS ORDERED: SODIUM CHLORIDE 1,000 ML IV SCH (03:30)
[2021-07-24] MEDS ORDERED: ACETAMINOPHEN 325 MG TABLET (FP) PO PRN (04:36)
[2021-07-24] MEDS ORDERED: oxyCODONE HCL 5 MG TABLET PO PRN (04:36)
[2021-07-24] MEDS: CLINDAMYCIN 900 MG PREMIX IVPB 900 MG/50 ML BAG IVPB SCH ×3 (04:38→17:04)
[2021-07-24] MEDS: LEVOTHYROXINE NA 112 MCG TABLET (FP) PO SCH (06:18)
[2021-07-24] MEDS: INSULIN (LEVEMIR) 100 UNITS/ML UNITS SQ SCH ×2 (06:18→17:31)
[2021-07-24] MEDS: INSULIN SLIDING SCALE (NOVOLOG) 1 VIAL SQ SCH ×4 (06:19→21:04)
[2021-07-24] MEDS ORDERED: methaDONE HCL 10 MG TABLET (FOR DETOX USE ONLY) PO SCH (08:07)
[2021-07-24] MEDS ORDERED: methaDONE HCL 10 MG TABLET ONE (08:14)
[2021-07-24] MEDS ORDERED: methaDONE 80 MG, methaDONE 10 MG PO ONE (08:15)
[2021-07-24] MEDS ORDERED: methaDONE HCL 40 MG DISPERSABLE TABLET ONE (08:15)
[2021-07-24] MEDS: LORazepam 0.5 MG TABLET PO PRN ×2 (08:34→22:24)
[2021-07-24 08:53] LABS: BASO % 0.3 % (0-2.0); EOS % 0.4 % (0-4.5); HEMATOCRIT 33.8 % (32.4-45.2); HEMOGLOBIN 11.2 GM/dL (10.7-15.3); MCH 31.4 pg (25.7-33.7); MCHC 33.2 g/dl (32.0-36.0); MEAN CELL VOLUME 94.3 fl (80-96); MEAN PLT VOLUME 8.3 fl (7.5-11.1); MONO % 14.2 % (3.8-10.2); NEUT % 63.1 % (42.8-82.8); PLATELET COUNT 140 10^3/uL (134-434); RBC 3.58 M/mm3 (3.60-5.2); RDW 15.8 % (11.6-15.6); WHITE BLOOD COUNT 6.2 K/mm3 (4.0-10.0)
[2021-07-24 09:03] LABS: BLOOD UREA NITROGEN 13.5 mg/dL (7-18); MAGNESIUM 1.9 mg/dL (1.8-2.4)
[2021-07-24 09:04] LABS: CALCIUM 8.5 mg/dL (8.5-10.1)
[2021-07-24 09:06] LABS: CREATININE 0.6 mg/dL (0.55-1.3)
[2021-07-24 09:07] LABS: PHOSPHOROUS 2.9 mg/dL (2.5-4.9)
[2021-07-24 09:08] LABS: BILIRUBIN,TOTAL 0.7 mg/dL (0.2-1)
[2021-07-24 09:09] LABS: TOT PROT 6.8 g/dl (6.4-8.2)
[2021-07-24] MEDS ORDERED: ENOXAPARIN NA (PORCINE) 40 MG/0.4 ML DISP.SYRIN SQ SCH (10:00)
[2021-07-24] MEDS: ASPIRIN 81 MG CHEWABLE TABLETS PO SCH (10:14)
[2021-07-24] MEDS: FUROSEMIDE 20 MG TABLET (FP) PO SCH (10:14)
[2021-07-24] MEDS: amLODIPine BESYLATE 5 MG TABLET (FP) PO SCH (10:14)
[2021-07-24] MEDS: FAMOTIDINE 20 MG TABLET PO SCH (10:14)
[2021-07-24] MEDS: ATENOLOL 50 MG TABLET (FP) PO SCH ×2 (10:15→21:26)
[2021-07-24] MEDS ORDERED: ONDANSETRON 4 MG/2 ML VIAL IVPUSH PRN (13:50)
[2021-07-24] MEDS: EMTRICITABINE/TENOFOV ALAFENAM (DESCOVY) TABLET PO SCH (17:29)
[2021-07-24] MEDS: RIVAROXABAN 20 MG TABLET PO SCH (17:29)
[2021-07-24] MEDS: RITONAVIR 100 MG TABLET PO SCH (17:32)
[2021-07-24] MEDS ORDERED: CLINDAMYCIN HCL 150 MG CAPSULE (FP) PO ONE (18:41)
[2021-07-24] MEDS: ATORVASTATIN CA 20 MG TABLET (FP) PO SCH (21:26)
[2021-07-24] MEDS ORDERED: traZODone HCL 50 MG TABLET (FP) PO ONE (22:00)
[2021-07-25] MEDS: CLINDAMYCIN 900 MG PREMIX IVPB 900 MG/50 ML BAG IVPB SCH ×2 (03:37→10:36)
[2021-07-25] MEDS ORDERED: methaDONE 80 MG, methaDONE 10 MG PO SCH ×2 (06:00→07:18)
[2021-07-25] MEDS: INSULIN (LEVEMIR) 100 UNITS/ML UNITS SQ SCH ×2 (06:15→17:11)
[2021-07-25] MEDS: INSULIN SLIDING SCALE (NOVOLOG) 1 VIAL SQ SCH ×4 (06:16→21:10)
[2021-07-25] MEDS: LEVOTHYROXINE NA 112 MCG TABLET (FP) PO SCH (06:16)
[2021-07-25] MEDS ORDERED: methaDONE HCL 40 MG DISPERSABLE TABLET ONE (07:47)
[2021-07-25] MEDS ORDERED: methaDONE HCL 10 MG TABLET ONE ×2 (07:47→07:51)
[2021-07-25] MEDS: methaDONE 80 MG, methaDONE 10 MG PO SCH (07:57)
[2021-07-25] MEDS: EMTRICITABINE/TENOFOV ALAFENAM (DESCOVY) TABLET PO SCH (09:18)
[2021-07-25] MEDS: ATENOLOL 50 MG TABLET (FP) PO SCH ×2 (09:18→21:09)
[2021-07-25] MEDS: LORazepam 0.5 MG TABLET PO PRN ×2 (09:18→21:08)
[2021-07-25] MEDS: amLODIPine BESYLATE 5 MG TABLET (FP) PO SCH (09:18)
[2021-07-25] MEDS: ASPIRIN 81 MG CHEWABLE TABLETS PO SCH (09:18)
[2021-07-25] MEDS: RITONAVIR 100 MG TABLET PO SCH (09:18)
[2021-07-25] MEDS: FAMOTIDINE 20 MG TABLET PO SCH (09:19)
[2021-07-25] MEDS: FUROSEMIDE 20 MG TABLET (FP) PO SCH (09:19)
[2021-07-25] MEDS: GABAPENTIN 300 MG CAPSULE PO SCH ×2 (13:32→21:09)
[2021-07-25] MEDS: CLINDAMYCIN HCL 150 MG CAPSULE (FP) PO SCH ×2 (13:32→21:09)
[2021-07-25] MEDS ORDERED: MINERAL OIL/PETROLAT/WATER TOPICAL CREAM 454 GM JAR TP PRN (15:23)
[2021-07-25] MEDS ORDERED: METOCLOPRAMIDE HCL INJECTION 10 MG/2 ML VIAL IVPUSH ONE (15:32)
[2021-07-25] MEDS ORDERED: ACETAMINOPHEN 325 MG TABLET (FP) PO PRN (15:36)
[2021-07-25] MEDS ORDERED: oxyCODONE HCL 5 MG TABLET PO PRN (15:36)
[2021-07-25] MEDS: DARUNAVIR ETHANOLATE 800 MG TAB PO SCH (17:07)
[2021-07-25] MEDS: RIVAROXABAN 20 MG TABLET PO SCH (17:12)
[2021-07-25] MEDS: DOCUSATE SODIUM 100 MG CAPSULE (FP) PO PRN ×2 (17:14→21:08)
[2021-07-25] MEDS ORDERED: ONDANSETRON 4 MG TABLET PO PRN (19:53)
[2021-07-25] MEDS: ATORVASTATIN CA 20 MG TABLET (FP) PO SCH (21:09)
[2021-07-25] MEDS: POLYETHYLENE GLYCOL (HEALTHYLAX) 3350 17 GM PACKET PO SCH (21:10)
[2021-07-25] MEDS ORDERED: traZODone HCL 50 MG TABLET (FP) PO SCH (22:00)
[2021-07-26] MEDS: INSULIN (LEVEMIR) 100 UNITS/ML UNITS SQ SCH ×2 (05:12→07:58)
[2021-07-26] MEDS ORDERED: methaDONE HCL 10 MG TABLET ONE (05:25)
[2021-07-26] MEDS ORDERED: methaDONE HCL 40 MG DISPERSABLE TABLET ONE (05:26)
[2021-07-26] MEDS: CLINDAMYCIN HCL 150 MG CAPSULE (FP) PO SCH ×3 (06:30→21:20)
[2021-07-26] MEDS: GABAPENTIN 300 MG CAPSULE PO SCH ×3 (06:30→21:19)
[2021-07-26] MEDS: methaDONE 80 MG, methaDONE 10 MG PO SCH (06:30)
[2021-07-26] MEDS ORDERED: NALOXONE HCL 0.4 MG/ML VIAL IVPUSH ONE ×2 (06:50→07:01)
[2021-07-26] MEDS ORDERED: NALOXONE HCL 0.4 MG/ML VIAL ONE (06:56)
[2021-07-26 07:30] LABS: ARTERIAL BLD GAS O2 SATURATION 99.3 % (95-98); ARTERIAL BLOOD GAS BASE EXCESS 3.6 mmol/L (-2-2); ARTERIAL BLOOD GAS PO2 234.7 mmHg (80-100); ARTERIAL BLOOD GAS pH 7.244 (7.350-7.450)
[2021-07-26 07:42] LABS: ALLENS TEST POSITIVE
[2021-07-26] MEDS ORDERED: INSULIN (NOVOLOG) ASPART 100 UNITS/ML 10ML VIAL ONE (07:49)
[2021-07-26] MEDS: INSULIN SLIDING SCALE (NOVOLOG) 1 VIAL SQ SCH ×4 (08:01→21:33)
[2021-07-26] MEDS: LEVOTHYROXINE NA 112 MCG TABLET (FP) PO SCH (08:02)
[2021-07-26] MEDS: DARUNAVIR ETHANOLATE 800 MG TAB PO SCH (09:14)
[2021-07-26] MEDS: ATENOLOL 50 MG TABLET (FP) PO SCH ×2 (09:14→21:19)
[2021-07-26] MEDS: ASPIRIN 81 MG CHEWABLE TABLETS PO SCH (09:14)
[2021-07-26] MEDS: RITONAVIR 100 MG TABLET PO SCH (09:14)
[2021-07-26] MEDS: amLODIPine BESYLATE 5 MG TABLET (FP) PO SCH (09:14)
[2021-07-26] MEDS: FUROSEMIDE 20 MG TABLET (FP) PO SCH (09:14)
[2021-07-26] MEDS: FAMOTIDINE 20 MG TABLET PO SCH (09:14)
[2021-07-26] MEDS: EMTRICITABINE/TENOFOV ALAFENAM (DESCOVY) TABLET PO SCH (09:14)
[2021-07-26] MEDS: POLYETHYLENE GLYCOL (HEALTHYLAX) 3350 17 GM PACKET PO SCH ×2 (09:15→21:20)
[2021-07-26] MEDS: LORazepam 0.5 MG TABLET PO PRN ×2 (12:36→21:24)
[2021-07-26] MEDS: RIVAROXABAN 20 MG TABLET PO SCH (18:01)
[2021-07-26] MEDS: ATORVASTATIN CA 20 MG TABLET (FP) PO SCH (21:19)
[2021-07-26] MEDS: CEFPODOXIME PROXETIL 200 MG TABLET [NF] PO SCH (21:22)
[2021-07-27] MEDS: GABAPENTIN 300 MG CAPSULE PO SCH ×3 (05:47→21:50)
[2021-07-27] MEDS: CLINDAMYCIN HCL 150 MG CAPSULE (FP) PO SCH (05:51)
[2021-07-27] MEDS: methaDONE 80 MG, methaDONE 10 MG PO SCH (06:10)
[2021-07-27] MEDS: LEVOTHYROXINE NA 112 MCG TABLET (FP) PO SCH (06:11)
[2021-07-27] MEDS: INSULIN (LEVEMIR) 100 UNITS/ML UNITS SQ SCH ×2 (07:05→17:59)
[2021-07-27] MEDS: INSULIN SLIDING SCALE (NOVOLOG) 1 VIAL SQ SCH ×4 (07:05→21:55)
[2021-07-27 07:10] LABS: BASO % 0.3 % (0-2.0); EOS % 0.5 % (0-4.5); HEMATOCRIT 28.9 % (32.4-45.2); HEMOGLOBIN 9.6 GM/dL (10.7-15.3); LYMPH % 33.3 % (8-40); MCH 31.3 pg (25.7-33.7); MCHC 33.1 g/dl (32.0-36.0); MEAN CELL VOLUME 94.4 fl (80-96); MEAN PLT VOLUME 8.4 fl (7.5-11.1); MONO % 10.9 % (3.8-10.2); PLATELET COUNT 158 10^3/uL (134-434); RBC 3.06 M/mm3 (3.60-5.2); RDW 15.3 % (11.6-15.6); WHITE BLOOD COUNT 4.8 K/mm3 (4.0-10.0)
[2021-07-27 07:29] LABS: CALCIUM 8.5 mg/dL (8.5-10.1)
[2021-07-27 07:30] LABS: BLOOD UREA NITROGEN 27.5 mg/dL (7-18)
[2021-07-27] MEDS ORDERED: CLINDAMYCIN 600MG PREMIX IVPB 600 MG/50 ML BAG IVPB SCH ×2 (08:29→10:00)
[2021-07-27] MEDS ORDERED: methaDONE HCL 10 MG TABLET (FOR DETOX USE ONLY) PO SCH (09:32)
[2021-07-27] MEDS ORDERED: methaDONE HCL 10 MG TABLET ONE (09:53)
[2021-07-27] MEDS ORDERED: methaDONE HCL 40 MG DISPERSABLE TABLET ONE (09:53)
[2021-07-27] MEDS: methaDONE 40 MG, methaDONE 20 MG PO SCH (09:57)
[2021-07-27] MEDS: FAMOTIDINE 20 MG TABLET PO SCH (09:59)
[2021-07-27] MEDS: POLYETHYLENE GLYCOL (HEALTHYLAX) 3350 17 GM PACKET PO SCH ×2 (10:00→21:50)
[2021-07-27] MEDS: FUROSEMIDE 20 MG TABLET (FP) PO SCH (10:00)
[2021-07-27] MEDS: ASPIRIN 81 MG CHEWABLE TABLETS PO SCH (10:00)
[2021-07-27] MEDS: RITONAVIR 100 MG TABLET PO SCH (10:21)
[2021-07-27] MEDS: EMTRICITABINE/TENOFOV ALAFENAM (DESCOVY) TABLET PO SCH (10:21)
[2021-07-27] MEDS: DARUNAVIR ETHANOLATE 800 MG TAB PO SCH (10:21)
[2021-07-27] MEDS: CEFPODOXIME PROXETIL 200 MG TABLET [NF] PO SCH (10:21)
[2021-07-27 13:44] VITALS: BMI 23.5
[2021-07-27] MEDS ORDERED: VANCOMYCIN/WATER FOR INJ (PEG) 1,000 MG/200 ML BAG IVPB SCH (15:00)
[2021-07-27] MEDS: RIVAROXABAN 20 MG TABLET PO SCH (17:12)
[2021-07-27] MEDS ORDERED: PIPERACILLIN/TAZOBACTAM 3.375 GM VIAL IVPB ONE (17:27)
[2021-07-27] MEDS ORDERED: DEXTROSE 5%-WATER - 50 ML IVPB ONE (17:28)
[2021-07-27] MEDS: PIPERACILLIN/TAZOB 3.375 GM 3.375 GM in DEXTROSE 5%-WATER - 50 ML IVPB SCH (18:18)
[2021-07-27 18:32] VITALS: PULSE 72
[2021-07-27] MEDS: ATORVASTATIN CA 20 MG TABLET (FP) PO SCH (21:50)
[2021-07-28] MEDS ORDERED: PIPERACILLIN/TAZOBACTAM 3.375 GM VIAL IVPB ONE ×2 (01:47→08:14)
[2021-07-28] MEDS: PIPERACILLIN/TAZOB 3.375 GM 3.375 GM in DEXTROSE 5%-WATER - 50 ML IVPB SCH ×2 (02:07→09:45)
[2021-07-28] MEDS ORDERED: methaDONE HCL 40 MG DISPERSABLE TABLET ONE (05:40)
[2021-07-28] MEDS ORDERED: methaDONE HCL 10 MG TABLET ONE (05:40)
[2021-07-28] MEDS: methaDONE 40 MG, methaDONE 20 MG PO SCH (06:19)
[2021-07-28] MEDS: LEVOTHYROXINE NA 112 MCG TABLET (FP) PO SCH (06:20)
[2021-07-28] MEDS: GABAPENTIN 300 MG CAPSULE PO SCH (06:20)
[2021-07-28] MEDS: INSULIN SLIDING SCALE (NOVOLOG) 1 VIAL SQ SCH ×2 (06:22→11:55)
[2021-07-28] MEDS: INSULIN (LEVEMIR) 100 UNITS/ML UNITS SQ SCH (06:22)
[2021-07-28 07:05] LABS: BASO % 0.6 % (0-2.0); EOS % 2.6 % (0-4.5); HEMATOCRIT 30.4 % (32.4-45.2); MCH 30.9 pg (25.7-33.7); MEAN CELL VOLUME 93.6 fl (80-96); MEAN PLT VOLUME 8.3 fl (7.5-11.1); MONO % 11.3 % (3.8-10.2); NEUT % 64.5 % (42.8-82.8); PLATELET COUNT 183 10^3/uL (134-434); RBC 3.25 M/mm3 (3.60-5.2); RDW 15.3 % (11.6-15.6); WHITE BLOOD COUNT 4.4 K/mm3 (4.0-10.0)
[2021-07-28 07:27] LABS: CALCIUM 8.4 mg/dL (8.5-10.1)
[2021-07-28 07:29] LABS: ALBUMIN 2.8 g/dl (3.4-5.0); BLOOD UREA NITROGEN 16.4 mg/dL (7-18)
[2021-07-28 07:31] LABS: CREATININE 0.7 mg/dL (0.55-1.3)
[2021-07-28 07:32] LABS: BILIRUBIN,TOTAL 0.4 mg/dL (0.2-1); TOT PROT 6.4 g/dl (6.4-8.2)
[2021-07-28] MEDS ORDERED: DEXTROSE 5%-WATER - 50 ML IVPB ONE (08:14)
[2021-07-28] MEDS: POLYETHYLENE GLYCOL (HEALTHYLAX) 3350 17 GM PACKET PO SCH (09:45)
[2021-07-28] MEDS: FUROSEMIDE 20 MG TABLET (FP) PO SCH (09:47)
[2021-07-28] MEDS: ASPIRIN 81 MG CHEWABLE TABLETS PO SCH (09:47)
[2021-07-28] MEDS: FAMOTIDINE 20 MG TABLET PO SCH (09:47)
[2021-07-28] MEDS: DARUNAVIR ETHANOLATE 800 MG TAB PO SCH (09:48)
[2021-07-28] MEDS: EMTRICITABINE/TENOFOV ALAFENAM (DESCOVY) TABLET PO SCH (09:48)
[2021-07-28] MEDS: RITONAVIR 100 MG TABLET PO SCH (09:48)
[2021-07-28 10:10] VITALS: BP 114/57; TEMP 98
[2021-07-28] MEDS ORDERED: LACTATED RINGERS SOLUTION 1,000 ML/1,000 ML INFUS.BAG IV STA (10:45)
== END 2021-07-28 13:11 | disposition left against medical advice (07) | DRG 863 ==
LOC: JER 18:06 → JERBED 23:11 → J7W 07-24 02:36 → J4W 07-26 11:43
PROVIDERS: ADMIT Internal Medicine
DX: T81.49XA Infection following a procedure, other surgical site, initial encounter (principal); J96.10 Chronic respiratory failure, unspecified whether with hypoxia or hypercapnia; E87.3 Alkalosis; L02.213 Cutaneous abscess of chest wall; E87.2 Acidosis; L03.313 Cellulitis of chest wall; B99.8 Other infectious disease; I10 Essential (primary) hypertension; E11.9 Type 2 diabetes mellitus without complications; E03.9 Hypothyroidism, unspecified; F41.8 Other specified anxiety disorders; I48.91 Unspecified atrial fibrillation; E78.5 Hyperlipidemia, unspecified; I25.10 Atherosclerotic heart disease of native coronary artery without angina pectoris; J44.9 Chronic obstructive pulmonary disease, unspecified; G89.29 Other chronic pain; F19.10 Other psychoactive substance abuse, uncomplicated; Z21 Asymptomatic human immunodeficiency virus [HIV] infection status; Y83.8 Other surgical procedures as the cause of abnormal reaction of the patient, or of later complication, without mention of misadventure at the time of the procedure; Z85.3 Personal history of malignant neoplasm of breast; Z85.850 Personal history of malignant neoplasm of thyroid; Z85.22 Personal history of malignant neoplasm of nasal cavities, middle ear, and accessory sinuses
CPT/HCPCS: 36415; 36600; 70450-TC; 76604; 80048; 80053; 82803; 82962; 83735; 84100; 84439; 84443; 85025; 86359; 86360; 87040; 93005; 93010; 93970-TC; 99285-25; C9803-CS; U0003; U0005

== ENCOUNTER 2021-11-21 12:20 | Emergency (ER) | payer OTHER ==
[2021-11-21 13:00] VITALS: RESP 20; BMI 22.6
[2021-11-21] MEDS ORDERED: GABAPENTIN 300 MG CAPSULE PO ONE (15:00)
[2021-11-21] MEDS ORDERED: KETOROLAC TROMETHAMINE 10 MG TABLET PO ONE (15:00)
[2021-11-21] MEDS ORDERED: KETOROLAC TROMETHAMINE 60 MG/2 ML VIAL IM ONE (15:03)
[2021-11-21] MEDS ORDERED: KETOROLAC TROMETHAMINE 60 MG/2 ML VIAL ONE (15:14)
[2021-11-21] MEDS ORDERED: GABAPENTIN 300 MG CAPSULE ONE (15:15)
[2021-11-21 19:17] VITALS: BP 136/65; PULSE 68; TEMP 98.6
== END 2021-11-21 19:17 | disposition home or self-care (01) ==
LOC: JER 12:20
PROC: 3E0233Z Introduction of Anti-inflammatory into Muscle, Percutaneous Approach (ICD-10-PCS; principal; 2021-11-21)
DX: M79.604 Pain in right leg (principal); M79.605 Pain in left leg
CPT/HCPCS: 93970-TC; 99284-25

== ENCOUNTER 2022-02-15 18:27 | Emergency (ER) | payer OTHER ==
[2022-02-15 19:07] VITALS: BP 126/84; PULSE 80; RESP 18; TEMP 98; BMI 25.0
[2022-02-15] MEDS ORDERED: LACTATED RINGERS SOLUTION 1000 ML INFUS.BAG IV ONE (19:43)
[2022-02-15] MEDS ORDERED: KETOROLAC TROMETHAMINE 15 MG/ML VIAL IVPUSH ONE (19:43)
[2022-02-15] MEDS ORDERED: GABAPENTIN 400 MG CAPSULE PO ONE (19:44)
[2022-02-15] MEDS ORDERED: KETOROLAC TROMETHAMINE 15 MG/ML VIAL ONE (19:54)
[2022-02-15] MEDS ORDERED: GABAPENTIN 400 MG CAPSULE ONE (19:54)
[2022-02-15 20:26] LABS: BASO % 0.4 % (0-2.0); EOS % 0.7 % (0-4.5); HEMATOCRIT 34.5 % (32.4-45.2); LYMPH % 17.5 % (8-40); MCH 30.9 pg (25.7-33.7); MCHC 31.9 g/dl (32.0-36.0); MEAN CELL VOLUME 96.6 fl (80-96); MEAN PLT VOLUME 8.2 fl (7.5-11.1); MONO % 13.5 % (3.8-10.2); NEUT % 67.9 % (42.8-82.8); PLATELET COUNT 151 10^3/uL (134-434); RBC 3.57 M/mm3 (3.60-5.2); RDW 13.5 % (11.6-15.6); WHITE BLOOD COUNT 5.7 K/mm3 (4.0-10.0)
[2022-02-15 21:14] LABS: ALBUMIN 3.4 g/dl (3.4-5.0); CALCIUM 8.9 mg/dL (8.5-10.1); MAGNESIUM 2.1 mg/dL (1.8-2.4)
[2022-02-15 21:15] LABS: BLOOD UREA NITROGEN 28.9 mg/dL (7-18)
[2022-02-15 21:17] LABS: CREATININE 1.4 mg/dL (0.55-1.3)
[2022-02-15 21:19] LABS: BILIRUBIN,TOTAL 0.2 mg/dL (0.2-1); TOT PROT 7.6 g/dl (6.4-8.2)
== END 2022-02-15 23:00 | disposition left against medical advice (07) ==
LOC: JER 18:27
PROC: 3E033GC Introduction of Other Therapeutic Substance into Peripheral Vein, Percutaneous Approach (ICD-10-PCS; principal; 2022-02-15)
DX: J09.X2 Influenza due to identified novel influenza A virus with other respiratory manifestations (principal); N17.9 Acute kidney failure, unspecified
CPT/HCPCS: 0241U-QW; 36415; 80053; 83735; 85025; 99284-25

== ENCOUNTER 2022-09-05 16:14 | Observation (INO) | payer OTHER ==
[2022-09-05] MEDS ORDERED: ACETAMINOPHEN 1000 MG/100 ML BAG IVPB ONE ×2 (17:51→18:50)
[2022-09-05] MEDS ORDERED: ACETAMINOPHEN INJECTION 100 ML IVPB ONE ×2 (18:02→18:07)
[2022-09-05] MEDS ORDERED: SODIUM CHLORIDE 0.9% 500 ML INFUS.BAG IV ONE (18:15)
[2022-09-05 19:05] LABS: BASO % 0.7 % (0-2.0); EOS % 1.1 % (0-4.5); HEMATOCRIT 34.1 % (32.4-45.2); HEMOGLOBIN 11.7 GM/dL (10.7-15.3); LYMPH % 27.9 % (8-40); MCH 33.3 pg (25.7-33.7); MCHC 34.3 g/dl (32.0-36.0); MONO % 9.9 % (3.8-10.2); NEUT % 60.4 % (42.8-82.8); RBC 3.52 M/mm3 (3.60-5.2); RDW 15.9 % (11.6-15.6); WHITE BLOOD COUNT 4.9 K/mm3 (4.0-10.0)
[2022-09-05 19:28] LABS: POTASSIUM 5.3 mmol/L (3.5-5.1)
[2022-09-05 19:31] LABS: ALBUMIN 3.6 g/dl (3.4-5.0); BLOOD UREA NITROGEN 22.2 mg/dL (7-18); CALCIUM 9.1 mg/dL (8.5-10.1)
[2022-09-05 19:34] LABS: CREATININE 1.2 mg/dL (0.55-1.3)
[2022-09-05 19:36] LABS: BILIRUBIN,TOTAL 0.5 mg/dL (0.2-1)
[2022-09-05 19:58] LABS: PLATELET COUNT 194 10^3/uL (134-434)
[2022-09-05 20:34] LABS: VENOUS BASE EXCESS 8.9 mmol/L (-2-2); VENOUS O2 SATURATION 42.8 % (70-80); VENOUS PH 7.26 (7.310-7.410)
[2022-09-05 20:44] LABS: VENOUS PCO2 88.6 mmHg (38-52)
[2022-09-05] MEDS ORDERED: ALBUTEROL SO4 2.5/IPRATROPIUM 0.5 INH SOL 3 ML VIAL.NEB. NEB ONE (21:59)
[2022-09-05 22:15] LABS: ARTERIAL BLD GAS O2 SATURATION 68.7 % (95-98); ARTERIAL BLOOD GAS BASE EXCESS 5.5 mmol/L (-2-2); ARTERIAL BLOOD GAS pH 7.319 (7.350-7.450)
[2022-09-05] MEDS: ALBUTEROL SO4 2.5/IPRATROPIUM 0.5 INH SOL 3 ML VIAL.NEB. NEB SCH (22:17)
[2022-09-05 22:18] LABS: ARTERIAL BLOOD GAS PO2 39.9 mmHg (80-100)
[2022-09-05 22:35] LABS: POTASSIUM 3.9 mmol/L (3.5-5.1)
[2022-09-05 22:36] LABS: CALCIUM 8.7 mg/dL (8.5-10.1)
[2022-09-05 22:37] LABS: BLOOD UREA NITROGEN 21.6 mg/dL (7-18)
[2022-09-05 22:40] LABS: CREATININE 1.1 mg/dL (0.55-1.3)
[2022-09-06] MEDS ORDERED: ALBUTEROL SO4 2.5/IPRATROPIUM 0.5 INH SOL 3 ML VIAL.NEB. NEB ONE (02:13)
[2022-09-06] MEDS ORDERED: ALBUTEROL SO4 2.5/IPRATROPIUM 0.5 INH SOL 3 ML VIAL.NEB. NEB PRN ×2 (02:14→02:15)
[2022-09-06 03:42] VITALS: BMI 20.5
[2022-09-06] MEDS: INSULIN SLIDING SCALE (NOVOLOG) 1 VIAL SQ SCH ×2 (06:11→12:38)
[2022-09-06] MEDS ORDERED: IBUPROFEN 400 MG TABLET (FP) PO PRN (07:02)
[2022-09-06] MEDS ORDERED: methaDONE 80 MG, methaDONE 20 MG PO SCH (09:00)
[2022-09-06 09:18] LABS: URINE APPEARANCE CLEAR; URINE BILIRUBIN NEGATIVE (NEGATIVE); URINE COLOR YELLOW; URINE GLUCOSE (UA) NEGATIVE (NEGATIVE); URINE KETONE NEGATIVE (NEGATIVE); URINE LEUK ESTERASE NEGATIVE (NEGATIVE); URINE NITRITE NEGATIVE (NEGATIVE); URINE PROTEIN NEGATIVE (NEGATIVE); URINE UROBILINOGEN 0.2 mg/dL (0.2-1.0)
[2022-09-06 09:25] LABS: OPIATES, URI NEGATIVE (NEGATIVE); URINE BARBITURATES NEGATIVE (NEGATIVE); URINE BENZODIAZEPINES NEGATIVE (NEGATIVE)
[2022-09-06 09:26] LABS: PHENCYCLIDINE,URINE NEGATIVE (NEGATIVE)
[2022-09-06 09:29] LABS: COCAINE, UR NEGATIVE (NEGATIVE); METHADONE, UR POSITIVE (NEGATIVE); URINE AMPHETAMINES NEGATIVE (NEGATIVE)
[2022-09-06] MEDS ORDERED: ENOXAPARIN NA (PORCINE) 40 MG/0.4 ML DISP.SYRIN SQ SCH (10:00)
[2022-09-06] MEDS ORDERED: EMTRICITABINE/TENOFOV ALAFENAM (DESCOVY) TABLET PO SCH (10:00)
[2022-09-06] MEDS ORDERED: ATENOLOL 50 MG TABLET (FP) PO SCH (10:00)
[2022-09-06] MEDS ORDERED: methaDONE HCL 10 MG TABLET (FOR DETOX USE ONLY) PO SCH (10:00)
[2022-09-06] MEDS ORDERED: LEVOTHYROXINE NA 112 MCG TABLET (FP) PO SCH (10:00)
[2022-09-06] MEDS ORDERED: DULoxetine HCL 30 MG CAPSULE.DR PO SCH (10:00)
[2022-09-06] MEDS ORDERED: amLODIPine BESYLATE 5 MG TABLET (FP) PO SCH (10:00)
[2022-09-06] MEDS ORDERED: methylPREDNISolone NA SUCC 40 MG/1 ML VIAL IVPUSH SCH (10:00)
[2022-09-06 10:12] LABS: HEMATOCRIT 37.1 % (32.4-45.2); HEMOGLOBIN 12.2 GM/dL (10.7-15.3); MCH 32.6 pg (25.7-33.7); MCHC 32.8 g/dl (32.0-36.0); MEAN CELL VOLUME 99.4 fl (80-96); MEAN PLT VOLUME 8.3 fl (7.5-11.1); PLATELET COUNT 150 10^3/uL (134-434); RBC 3.73 M/mm3 (3.60-5.2); RDW 15.9 % (11.6-15.6); WHITE BLOOD COUNT 3.8 K/mm3 (4.0-10.0)
[2022-09-06 10:30] LABS: POTASSIUM 3.7 mmol/L (3.5-5.1)
[2022-09-06 10:32] LABS: CALCIUM 9.6 mg/dL (8.5-10.1)
[2022-09-06 10:33] LABS: ALBUMIN 3.8 g/dl (3.4-5.0); BLOOD UREA NITROGEN 15.7 mg/dL (7-18)
[2022-09-06 10:36] LABS: PHOSPHOROUS 3.3 mg/dL (2.5-4.9)
[2022-09-06 10:37] LABS: BILIRUBIN,TOTAL 0.4 mg/dL (0.2-1)
[2022-09-06] MEDS ORDERED: INSULIN (NOVOLOG) ASPART 100 UNITS/ML 10ML VIAL ONE (12:35)
[2022-09-06] MEDS ORDERED: GABAPENTIN 300 MG CAPSULE PO SCH (14:00)
[2022-09-06 16:42] VITALS: BP 123/66; PULSE 80; RESP 20; TEMP 98.1
[2022-09-06] MEDS ORDERED: risperiDONE 1 MG TABLET PO SCH (22:00)
[2022-09-06] MEDS ORDERED: traZODone HCL 50 MG TABLET (FP) PO SCH (22:00)
== END 2022-09-06 15:30 | disposition home or self-care (01) ==
LOC: JER 16:14 → JERBED 22:23 → J8W 09-06 03:43
PROVIDERS: ADMIT Internal Medicine; ATTEND Nurse Practitioner Family
PROC: 3E033NZ Introduction of Analgesics, Hypnotics, Sedatives into Peripheral Vein, Percutaneous Approach (ICD-10-PCS; principal; 2022-09-05)
PROC: 3E0F7GC Introduction of Other Therapeutic Substance into Respiratory Tract, Via Natural or Artificial Opening (ICD-10-PCS; 2022-09-05)
PROC: 3E023GC Introduction of Other Therapeutic Substance into Muscle, Percutaneous Approach (ICD-10-PCS; 2022-09-05)
PROC: 3E013VG Introduction of Insulin into Subcutaneous Tissue, Percutaneous Approach (ICD-10-PCS; 2022-09-05)
PROC: 3E033GC Introduction of Other Therapeutic Substance into Peripheral Vein, Percutaneous Approach (ICD-10-PCS; 2022-09-05)
PROC: 3E0337Z Introduction of Electrolytic and Water Balance Substance into Peripheral Vein, Percutaneous Approach (ICD-10-PCS; 2022-09-05)
DX: M19.90 Unspecified osteoarthritis, unspecified site (principal); F41.8 Other specified anxiety disorders; N63.0 Unspecified lump in unspecified breast; J96.10 Chronic respiratory failure, unspecified whether with hypoxia or hypercapnia; I10 Essential (primary) hypertension; E78.5 Hyperlipidemia, unspecified; Z85.3 Personal history of malignant neoplasm of breast; Z85.850 Personal history of malignant neoplasm of thyroid; M54.10 Radiculopathy, site unspecified; B20 Human immunodeficiency virus [HIV] disease; Z85.22 Personal history of malignant neoplasm of nasal cavities, middle ear, and accessory sinuses; F19.10 Other psychoactive substance abuse, uncomplicated; R07.89 Other chest pain; R01.1 Cardiac murmur, unspecified; Z86.711 Personal history of pulmonary embolism; Z87.891 Personal history of nicotine dependence; Z90.10 Acquired absence of unspecified breast and nipple
CPT/HCPCS: 36415; 36600; 71045-TC-FY; 71275-TC; 73560-TC-LT-FY; 73560-TC-RT-FY; 80048; 80053; 80307; 81003; 82803; 82962; 83690; 83735; 84100; 84484; 85025; 85027; 87086; 93005; 93010; 94640; 96372; 96374; 96375; 97116-GP; 97161-GP; 99285-25; G0378; Q9967

== ENCOUNTER 2023-04-10 15:09 | Emergency (ER) | payer OTHER ==
[2023-04-10 15:21] VITALS: BP 129/68; PULSE 88; RESP 18; TEMP 98.4; BMI 21.4
[2023-04-10] MEDS ORDERED: KETOROLAC TROMETHAMINE 15 MG/ML VIAL ONE (18:26)
[2023-04-10 18:31] LABS: HEMATOCRIT 34.3 % (32.4-45.2); HEMOGLOBIN 11.2 GM/dL (10.7-15.3); MCH 33.5 pg (25.7-33.7); MCHC 32.6 g/dl (32.0-36.0); MEAN CELL VOLUME 102.6 fl (80-96); MEAN PLT VOLUME 8.5 fl (7.5-11.1); PLATELET COUNT 164 10^3/uL (134-434); RBC 3.34 M/mm3 (3.60-5.2); RDW 13.5 % (11.6-15.6)
[2023-04-10] MEDS: KETOROLAC TROMETHAMINE 30 MG/1 ML VIAL IM ONE (18:33)
[2023-04-10] MEDS: KETOROLAC TROMETHAMINE 15 MG/ML VIAL IVPUSH ONE (18:34)
[2023-04-10 18:48] LABS: POTASSIUM 4.7 mmol/L (3.5-5.1)
[2023-04-10 18:50] LABS: ALBUMIN 3.6 g/dl (3.4-5.0)
[2023-04-10 18:51] LABS: BLOOD UREA NITROGEN 20.3 mg/dL (7-18)
[2023-04-10 18:55] LABS: BILIRUBIN,TOTAL 0.5 mg/dL (0.2-1); TOT PROT 7.6 g/dl (6.4-8.2)
[2023-04-10 20:16] LABS: ANISOCYTOSIS 0; MACROCYTOSIS 1+
== END 2023-04-10 20:02 | disposition home or self-care (01) ==
LOC: JER 15:09
PROC: 3E0233Z Introduction of Anti-inflammatory into Muscle, Percutaneous Approach (ICD-10-PCS; principal; 2023-04-10)
DX: M79.604 Pain in right leg (principal); M79.605 Pain in left leg; R26.2 Difficulty in walking, not elsewhere classified
CPT/HCPCS: 36415; 73562-TC-LT-FY; 73562-TC-RT-FY; 80053; 85025; 96372; 99284-25

== ENCOUNTER 2023-05-28 12:58 | Emergency (ER) | payer OTHER ==
[2023-05-28 14:05] VITALS: BP 94/58; PULSE 51; RESP 16; TEMP 98.4; BMI 23.8
[2023-05-28] MEDS ORDERED: KETOROLAC TROMETHAMINE 15 MG/ML VIAL ONE (14:31)
[2023-05-28] MEDS: KETOROLAC TROMETHAMINE 30 MG/1 ML VIAL IM ONE (14:35)
== END 2023-05-28 16:19 | disposition home or self-care (01) ==
LOC: JER 12:58
PROC: 3E0233Z Introduction of Anti-inflammatory into Muscle, Percutaneous Approach (ICD-10-PCS; principal; 2023-05-28)
DX: G89.29 Other chronic pain (principal); M25.561 Pain in right knee; M79.631 Pain in right forearm; W19.XXXA Unspecified fall, initial encounter
CPT/HCPCS: 73070-TC-RT-FY; 73090-TC-RT-FY; 96372; 99284-25

== ENCOUNTER 2023-06-26 11:56 | Emergency (ER) | payer OTHER ==
[2023-06-26 12:45] VITALS: RESP 18; BMI 21.9
[2023-06-26] MEDS ORDERED: LIDOCAINE 4% PATCH TP ONE ×2 (12:46→12:48)
[2023-06-26] MEDS ORDERED: KETOROLAC TROMETHAMINE 15 MG/ML VIAL ONE (12:46)
[2023-06-26] MEDS: LIDOCAINE 4% PATCH TP ONE (12:53)
[2023-06-26] MEDS: KETOROLAC TROMETHAMINE 15 MG/ML VIAL IM ONE (12:53)
[2023-06-26 16:04] VITALS: BP 99/62; PULSE 65; TEMP 97.9
== END 2023-06-26 16:04 | disposition home or self-care (01) ==
LOC: JER 11:56
PROC: 3E0133Z Introduction of Anti-inflammatory into Subcutaneous Tissue, Percutaneous Approach (ICD-10-PCS; principal; 2023-06-26)
DX: M25.561 Pain in right knee (principal); M25.562 Pain in left knee; G89.29 Other chronic pain; M25.461 Effusion, right knee; M25.462 Effusion, left knee
CPT/HCPCS: 93005; 93010; 96372; 99284-25

== ENCOUNTER 2023-12-24 14:24 | Emergency (ER) | payer OTHER ==
[2023-12-24 16:09] VITALS: RESP 18; BMI 22.6
[2023-12-24] MEDS ORDERED: KETOROLAC TROMETHAMINE 30 MG/1 ML VIAL ONE (17:32)
[2023-12-24 17:37] LABS: BASO % 0.6 % (0-2.0); EOS % 0.6 % (0-4.5); LYMPH % 20.2 % (8-40); MCH 31.5 pg (25.7-33.7); MCHC 33.3 g/dl (32.0-36.0); MEAN CELL VOLUME 94.7 fl (80-96); MEAN PLT VOLUME 7.3 fl (7.5-11.1); NEUT % 63.6 % (42.8-82.8); PLATELET COUNT 273 10^3/uL (134-434); RBC 3.49 M/mm3 (3.60-5.2); RDW 14.7 % (11.6-15.6)
[2023-12-24] MEDS: KETOROLAC TROMETHAMINE 30 MG/1 ML VIAL IVPUSH ONE (17:44)
[2023-12-24 18:23] LABS: ALBUMIN 3.6 g/dl (3.4-5.0); CALCIUM 9.9 mg/dL (8.5-10.1)
[2023-12-24 18:26] LABS: CREATININE 1.1 mg/dL (0.55-1.3)
[2023-12-24 18:27] LABS: BILIRUBIN,TOTAL 0.4 mg/dL (0.2-1); TOT PROT 7.9 g/dl (6.4-8.2)
[2023-12-24 20:57] VITALS: BP 127/71; PULSE 69; TEMP 98.5
[2023-12-24] MEDS: MINERAL OIL ENEMA 133 ML ENEMA RC ONE (21:01)
[2023-12-24 22:58] LABS: PH,URINE 5.5 (5.0-8.0); URINE APPEARANCE CLEAR; URINE BILIRUBIN NEGATIVE (NEGATIVE); URINE COLOR DK YELLOW; URINE GLUCOSE (UA) NEGATIVE (NEGATIVE); URINE KETONE TRACE (NEGATIVE); URINE PROTEIN NEGATIVE (NEGATIVE)
[2023-12-24 22:59] LABS: URINE LEUK ESTERASE NEGATIVE (NEGATIVE); URINE NITRITE NEGATIVE (NEGATIVE)
== END 2023-12-24 21:11 | disposition left against medical advice (07) ==
LOC: JER 14:24
PROC: 3E0333Z Introduction of Anti-inflammatory into Peripheral Vein, Percutaneous Approach (ICD-10-PCS; principal; 2023-12-24)
DX: E87.1 Hypo-osmolality and hyponatremia (principal); M54.50 Low back pain, unspecified; K59.00 Constipation, unspecified; R11.0 Nausea; R00.1 Bradycardia, unspecified
CPT/HCPCS: 36415; 74019-TC-FY; 80053; 81003; 83930; 83935; 84300; 84443; 85025; 87086; 93005; 93010; 96374; 99285-25

== ENCOUNTER 2024-11-25 08:56 | Inpatient (IN) | payer OTHER ==
[2024-11-25 14:05] LABS: MCHC 33.3 g/dl (32.2-35.5); MEAN CELL VOLUME 95.7 fl (79.4-94.8); MEAN PLT VOLUME 9.4 fl (9.4-12.3); RDW 12.7 % (12.4-16.6)
[2024-11-25 14:23] LABS: GLUCOSE,RANDOM 168.0 mg/dL (74-106)
[2024-11-25 14:24] LABS: TOT PROT 6.9 g/dl (6.4-8.2)
[2024-11-25 14:25] LABS: CO2 26.0 mmol/L (21-32)
[2024-11-25 14:27] LABS: ALK PHOS 159.0 U/L (40-150)
[2024-11-25 14:29] LABS: CREATININE 1.62 mg/dL (0.55-1.3); SGOT/AST 101.0 U/L (5-34); SGPT/ALT 56.0 U/L (0-55)
[2024-11-25] MEDS: SODIUM CHLORIDE 500 ML IV STA (16:28)
[2024-11-25] MEDS: SODIUM CHLORIDE 1,000 ML IV SCH (17:41)
[2024-11-25] MEDS: INSULIN ASPART SLIDING SCALE (NOVOLOG) 1 VIAL SQ SCH (18:19)
[2024-11-25 19:54] LABS: EPI CELLS 5 /uL (0-25.1); HYALINE CASTS 1 /uL (0-3.1); URINE APPEARANCE CLEAR; URINE BACTERIA 14 /uL (0-1359); URINE BILIRUBIN NEGATIVE (NEGATIVE); URINE COLOR YELLOW; URINE GLUCOSE (UA) NEGATIVE (NEGATIVE); URINE KETONE NEGATIVE (NEGATIVE); URINE LEUK ESTERASE TRACE (NEGATIVE); URINE NITRITE NEGATIVE (NEGATIVE); URINE PROTEIN 1+ (NEGATIVE); URINE RBC 16 /uL (0-23.9); URINE UROBILINOGEN 0.2 mg/dL (0.2-1.0); URINE WBC 5 /uL (0-25.8)
[2024-11-25] MEDS: ATORVASTATIN CA 20 MG TABLET (FP) PO SCH (22:33)
[2024-11-25] MEDS: HEPARIN NA (PORCINE) 5,000 UNITS/ML 1ML VIAL SQ SCH (22:33)
[2024-11-25 23:53] LABS: GLUCOSE,RANDOM 142.0 mg/dL (74-106)
[2024-11-25 23:55] LABS: CO2 28.0 mmol/L (21-32)
[2024-11-25 23:59] LABS: CREATININE 1.02 mg/dL (0.55-1.3)
[2024-11-26] MEDS: LEVOTHYROXINE NA 112 MCG TABLET (FP) PO SCH (06:33)
[2024-11-26] MEDS ORDERED: LEVOTHYROXINE SODIUM 100 MCG 5 ML VIAL IVPUSH SCH (07:00)
[2024-11-26 08:11] LABS: MCHC 34.0 g/dl (32.2-35.5); MEAN CELL VOLUME 93.8 fl (79.4-94.8); MEAN PLT VOLUME 9.1 fl (9.4-12.3); RDW 13.0 % (12.4-16.6)
[2024-11-26 08:39] LABS: GLUCOSE,RANDOM 148.0 mg/dL (74-106)
[2024-11-26 08:40] LABS: TOT PROT 6.4 g/dl (6.4-8.2)
[2024-11-26 08:41] LABS: CO2 28.0 mmol/L (21-32)
[2024-11-26 08:43] LABS: ALK PHOS 132.0 U/L (40-150)
[2024-11-26 08:45] LABS: SGOT/AST 80.0 U/L (5-34); SGPT/ALT 45.0 U/L (0-55)
[2024-11-26 08:46] LABS: CREATININE 0.8 mg/dL (0.55-1.3)
[2024-11-26] MEDS: DARUNAVIR ETHANOLATE 800 MG TAB PO SCH (09:49)
[2024-11-26] MEDS: EMTRICITABINE/TENOFOV ALAFENAM (DESCOVY) TABLET PO SCH (09:49)
[2024-11-26] MEDS: RITONAVIR 100 MG TABLET PO SCH (09:49)
[2024-11-26 10:46] VITALS: BMI 19.1
[2024-11-26] MEDS: SODIUM CHLORIDE 1,000 ML IV SCH ×2 (11:06→13:47)
[2024-11-26] MEDS: MAGNESIUM OXIDE 400 MG TABLET (FP) PO ONE ×3 (13:47→18:39)
[2024-11-26] MEDS: NAPH,MB-DB/K PH,MBDB POWDER PACKET PO ONE (13:47)
[2024-11-26] MEDS: BACLOFEN 10 MG TABLET (FP) PO SCH (14:14)
[2024-11-26] MEDS: ATENOLOL 25 MG TABLET (FP) PO SCH (14:14)
[2024-11-26] MEDS: NAPH,MB-DB/K PH,MBDB POWDER PACKET PO SCH (14:14)
[2024-11-26] MEDS: traZODone HCL 50 MG TABLET (FP) PO SCH (21:23)
[2024-11-27 08:57] LABS: MCHC 33.0 g/dl (32.2-35.5); MEAN CELL VOLUME 96.2 fl (79.4-94.8); MEAN PLT VOLUME 9.0 fl (9.4-12.3); RDW 13.1 % (12.4-16.6)
[2024-11-27] MEDS: ACETAMINOPHEN 325 MG TABLET (FP) PO PRN (09:06)
[2024-11-27 09:19] VITALS: RESP 18
[2024-11-27] MEDS: MAGNESIUM OXIDE 400 MG TABLET (FP) PO ONE (11:34)
[2024-11-27] MEDS ORDERED: INSULIN ASPART SLIDING SCALE (NOVOLOG) 1 VIAL SQ SCH (11:55)
[2024-11-27 15:57] VITALS: BP 144/83; PULSE 88; TEMP 98.4
== END 2024-11-27 17:06 | disposition home or self-care (01) | DRG 558 ==
LOC: JER 08:56 → JERBED 16:00 → J4S 17:04 → OBSVTOIN 17:05
PROVIDERS: ADMIT Internal Medicine; ATTEND Nurse Practitioner
DX: M62.82 Rhabdomyolysis (principal); E87.1 Hypo-osmolality and hyponatremia; I10 Essential (primary) hypertension; F32.A Depression, unspecified; F41.9 Anxiety disorder, unspecified; E11.9 Type 2 diabetes mellitus without complications; E78.5 Hyperlipidemia, unspecified; F20.9 Schizophrenia, unspecified; F11.10 Opioid abuse, uncomplicated; E83.42 Hypomagnesemia; E83.39 Other disorders of phosphorus metabolism
CPT/HCPCS: 36415; 70450-TC; 71045-TC-FY; 72125-TC; 72170-TC-FY; 73030-TC-LT-FY; 80048; 80053; 81003; 82550; 82962; 83735; 84100; 84484; 85025; 85027; 87040; 93005; 93010; 97116-GP; 97161-GP; 99285-25; G0378; J0475